=== PATIENT | male | born 1940 ===

== ENCOUNTER 2020-12-13 14:57 | Inpatient (IN) ==
[2020-12-13] MEDS ORDERED: Dexamethasone IV 4 MG/ML VIAL 1 ml VIAL IV SLOW PU ONE (16:41)
[2020-12-13 17:19] LABS: ABS Basophils 0.1 10^3/ul (0-0.2); ABS Eosinophils 0.1 10^3/ul (0-0.6); ABS Lymphocytes 0.7 10^3/ul (1.0-4.8); ABS Monocytes 0.6 10^3/ul (0-0.8); ABS Neutrophils 4.1 10^3/ul (1.5-7.7); Hematocrit 40 % (42-52); Hemoglobin 14.2 g/dL (14.0-18.0); Lymphocyte % 11.8 %; Mean Corpuscular HGB Conc 35 g/dL (31-36); Mean Corpuscular Hemoglobin 33 pg (27-31); Mean Corpuscular Volume 93 fL (80-94); Mean Platelet Volume 7.5 fL (7.4-10.4); Nucleated Red Blood Cells % 0.2; Platelet Count 144 10^3/uL (150-450); Red Cell Distribution Width 14 % (10-15); White Blood Count 5.6 10^3/uL (3.5-10.8)
[2020-12-13 17:28] LABS: Activated Partial Thrombo Time 30.5 seconds (26.0-38.0); INR 1.06 (0.82-1.09)
[2020-12-13 17:43] LABS: Albumin/Globulin Ratio 1.7 (1-3); BUN/Creatinine Ratio 22.9 (8-20); C Reactive Protein 2.54 mg/L (<8.01); Calcium 8.9 mg/dL (8.6-10.3); EGFR African American 91.7 (>60); EGFR Non-African American 75.8 (>60); Globulin 2.4 g/dL (2-4); Potassium 3.7 mmol/L (3.5-5.0); Total Bilirubin 0.3 mg/dL (0.2-1.0); Total Protein 6.4 g/dL (6.4-8.9)
[2020-12-13] MEDS: Heparin 5000 UNITS/ML 1 mL VIAL SUBCUT SCH (22:05)
[2020-12-14] MEDS: Dexamethasone IV 4 MG/ML VIAL 1 ml VIAL IV SLOW PU SCH ×3 (01:48→17:16)
[2020-12-14] MEDS: Heparin 5000 UNITS/ML 1 mL VIAL SUBCUT SCH ×3 (05:55→22:11)
[2020-12-14] MEDS: Calcium/Vitamin D TAB 250/125 TAB PO SCH ×2 (09:13→20:54)
[2020-12-14] MEDS: Cholecalciferol (VIT D3) 1,000 unit TAB PO SCH (09:13)
[2020-12-15] MEDS: Dexamethasone IV 4 MG/ML VIAL 1 ml VIAL IV SLOW PU SCH ×2 (01:16→10:21)
[2020-12-15 05:51] LABS: Hematocrit 41 % (42-52); Hemoglobin 14.2 g/dL (14.0-18.0); Mean Corpuscular HGB Conc 35 g/dL (31-36); Mean Corpuscular Hemoglobin 33 pg (27-31); Mean Corpuscular Volume 94 fL (80-94); Mean Platelet Volume 8.1 fL (7.4-10.4); Platelet Count 152 10^3/uL (150-450); Red Blood Count 4.32 10^6 /uL (4.18-5.48); Red Cell Distribution Width 15 % (10-15); White Blood Count 8.7 10^3/uL (3.5-10.8)
[2020-12-15] MEDS: Heparin 5000 UNITS/ML 1 mL VIAL SUBCUT SCH ×2 (05:56→13:45)
[2020-12-15 06:08] LABS: Calcium 9.2 mg/dL (8.6-10.3); EGFR African American 97.5 (>60); EGFR Non-African American 80.6 (>60); Potassium 4.1 mmol/L (3.5-5.0)
[2020-12-15] MEDS: Cholecalciferol (VIT D3) 1,000 unit TAB PO SCH (10:20)
[2020-12-15] MEDS: Calcium/Vitamin D TAB 250/125 TAB PO SCH (10:21)
[2020-12-15 13:21] LABS: Urine Appearance Clear; Urine Bilirubin Negative (Negative); Urine Blood Negative (Negative); Urine Color Yellow; Urine Glucose Negative (Negative); Urine Ketones Negative (Negative); Urine Nitrite Negative (Negative); Urine Protein Negative (Negative); Urine Specific Gravity 1.009 (1.010-1.030); Urine Urobilinogen Negative (Negative)
[2020-12-15 13:29] VITALS: BP 148/76
== END 2020-12-15 15:05 | disposition home or self-care (01) | DRG 552 ==
LOC: SSU 15:36
PROVIDERS: ADMIT Internal Medicine; ATTEND Internal Medicine

== ENCOUNTER 2020-12-20 06:59 | Inpatient (IN) ==
[~2020-12-20 06:59] MED LIST: Bacitracin INJECTION 50,000 UNITS ONE; Bacitracin OINTMENT TUBE ONE; Buffered Lidocaine 1% SYRIN 1 ml INTRADERM ONE; Gelfoam Sponge SIZE 100 SPONGE ONE; Lactated Ringers 1000 ml BAG 1,000 ML IV SCH; Lidocaine 1% w EPI 1:200,000 SDV 30 ML VIAL ONE; Thrombin 5,000 UNITS 1 APPLIC KIT - topical use - TOPICAL ONE; ceFAZolin VIAL VIAL ONE
[2020-12-20] MEDS ORDERED: Ondansetron 4 mg VIAL 2 MG/ML 2 ml VIAL ONE (07:08)
[2020-12-20] MEDS ORDERED: Dexamethasone IV 4 MG/ML VIAL 1 ml VIAL ONE ×2 (07:08→11:37)
[2020-12-20] MEDS ORDERED: Propofol 10 MG/ML 20 ML BTL ONE (07:08)
[2020-12-20] MEDS ORDERED: Lidocaine 2% PF 5 ML VIAL ONE (07:08)
[2020-12-20] MEDS ORDERED: Succinylcholine 200 mg VIAL 20 mg/ml 10 ml VIAL (200 mg) ONE (07:08)
[2020-12-20] MEDS ORDERED: Midazolam 2 mg/2 ml VIAL 1 mg/ml 2 ml VIAL (2 mg) ONE (07:12)
[2020-12-20] MEDS ORDERED: fentaNYL 100 mcg/2 ml 50 MCG/ML VIAL ONE ×2 (07:13→13:21)
[2020-12-20] MEDS ORDERED: Phenylephrine IV 10 MG/ML 1 ml VIAL ONE (07:14)
[2020-12-20] MEDS ORDERED: Remifentanil 2 MG VIAL ONE ×2 (07:14→11:58)
[2020-12-20] MEDS ORDERED: Propofol 10 mg/ml 100 ML BTL 200 ML ONE (07:37)
[2020-12-20] MEDS ORDERED: ceFAZolin 2 GM PREMIX 2 GM/50 ML BAG ONE (07:47)
[2020-12-20] MEDS ORDERED: Buffered Lidocaine 1% SYRIN 1 ml INTRADERM ONE (07:47)
[2020-12-20] MEDS ORDERED: DiMENhydriNATE IV 50 mg/ml 1 ml VIAL IV PUSH PRN (08:41)
[2020-12-20] MEDS ORDERED: Ondansetron 4 mg VIAL 2 MG/ML 2 ml VIAL IV PRN ×2 (08:41→12:59)
[2020-12-20] MEDS ORDERED: oxyCODONE/Acetamin 5/325 mg TAB PO PRN (08:41)
[2020-12-20] MEDS ORDERED: Naloxone 0.4 mg VIAL 0.4 mg/ml 1 ml VIAL IV PRN (08:41)
[2020-12-20] MEDS ORDERED: Rocuronium 50 mg VIAL 10 mg/ml 5 ml VIAL (50 mg) ONE (08:48)
[2020-12-20] MEDS ORDERED: fentaNYL 250 mcg/5 ml 50 MCG/ML 5 ml VIAL (250 MCG) ONE (09:23)
[2020-12-20] MEDS ORDERED: Glycopyrrolate IV 0.2 MG/ML 1 ML VIAL ONE (09:37)
[2020-12-20] MEDS ORDERED: Albuterol 2.5mg/3 ml (0.083%) NEB.SOLN INH PRN (13:08)
[2020-12-20] MEDS ORDERED: Polyethylene Glycol 3350 17 GM PACKET PO PRN (13:13)
[2020-12-20] MEDS ORDERED: NS 0.9% 1000 ml BAG 1,000 ML IV SCH (13:15)
[2020-12-20] MEDS ORDERED: CALCIPOTRIENE PRN (13:17)
[2020-12-20] MEDS: fentaNYL 100 mcg/2 ml 50 MCG/ML VIAL IV PRN ×2 (13:22→13:42)
[2020-12-20] MEDS ORDERED: Dexamethasone IV 4 MG/ML VIAL 1 ml VIAL IV SLOW PU SCH (14:00)
[2020-12-20] MEDS ORDERED: Benzocaine/Menthol LOZ PO SCH (14:00)
[2020-12-20] MEDS ORDERED: Morphine 2 MG/ML SYRINGE IV SCH (15:00)
[2020-12-20] MEDS: Benzocaine/Menthol LOZ PO SCH ×3 (15:01→22:00)
[2020-12-20] MEDS: ceFAZolin 2 GM PREMIX 2 GM/50 ML BAG IVPB SCH (17:49)
[2020-12-20] MEDS ORDERED: Morphine 2 MG/ML SYRINGE IV PRN (18:00)
[2020-12-20] MEDS: Calcium/Vitamin D TAB 250/125 TAB PO SCH (20:02)
[2020-12-20] MEDS: Cholecalciferol (VIT D3) 1,000 unit TAB PO SCH (20:02)
[2020-12-20] MEDS: Magnesium Hydroxide LIQ 30 ML UDC PO SCH (20:02)
[2020-12-21] MEDS: ceFAZolin 2 GM PREMIX 2 GM/50 ML BAG IVPB SCH ×3 (00:41→16:39)
[2020-12-21] MEDS: Benzocaine/Menthol LOZ PO SCH ×6 (00:44→21:26)
[2020-12-21] MEDS: Magnesium Hydroxide LIQ 30 ML UDC PO SCH ×2 (08:32→21:26)
[2020-12-21] MEDS: Cholecalciferol (VIT D3) 1,000 unit TAB PO SCH ×2 (08:32→21:26)
[2020-12-21] MEDS: Calcium/Vitamin D TAB 250/125 TAB PO SCH ×2 (08:32→21:25)
[2020-12-22] MEDS: ceFAZolin 2 GM PREMIX 2 GM/50 ML BAG IVPB SCH ×2 (01:00→09:03)
[2020-12-22] MEDS: Benzocaine/Menthol LOZ PO SCH ×2 (01:03→06:21)
[2020-12-22 07:20] VITALS: BP 143/74
[2020-12-22] MEDS: Calcium/Vitamin D TAB 250/125 TAB PO SCH (09:07)
[2020-12-22] MEDS: Cholecalciferol (VIT D3) 1,000 unit TAB PO SCH (09:07)
[2020-12-22] MEDS: Magnesium Hydroxide LIQ 30 ML UDC PO SCH (09:08)
== END 2020-12-22 10:55 | disposition home or self-care (01) | DRG 472 ==
LOC: AA 06:59 → SSU 14:12
PROVIDERS: ADMIT Neurological Surgery; ATTEND Neurological Surgery